=== PATIENT | male | born 1945 ===

== ENCOUNTER 2017-12-26 13:02 | Emergency (ER) | payer MEDICARE, MEDICAID ==
[2017-12-26 14:13] LABS: SQUAMOUS EPITHIAL 1 /hpf (0-5); URINE BACTERIA RARE (<OCC); URINE BILIRUBIN NEGATIVE (NEGATIVE); URINE BLOOD LARGE (NEGATIVE); URINE CLARITY CLOUDY (Clear); URINE COLOR AMBER (YELLOW); URINE GLUCOSE (UA) NEG (Normal); URINE LEUKOCYTE ESTERASE SMALL Leu/uL (Negative); URINE PROTEIN 100 mg/dL (NEGATIVE); URINE UROBILINOGEN 0.2-1.0 mg/dL (0.2-1.0)
--- NOTE | 2017-12-26 14:36 | ED PDOC ---
HPI: Male Pain Time Seen by Provider: 12/26/17 13:05 Chief Complaint (Nursing): Male Genitourinary Chief Complaint (Provider): Male Genitourinary History Per: Patient History/Exam Limitations: no limitations Onset/Duration Of Symptoms: Days (1) Associated Symptoms: denies: Fever, Vomiting Additional Complaint(s): 72 years old male with history of hypertension presents to the ED for evaluation of hematuria associated with slight dysuria onset last night. Patient denies any fever, vomiting or any medical complaints. PMD: none provided Past Medical History Reviewed: Historical Data, Nursing Documentation, Vital Signs Vital Signs: Last Vital Signs Temp 97.9 F 12/26/17 13:05 Pulse 79 12/26/17 13:05 Resp 18 12/26/17 13:05 BP 122/78 12/26/17 13:05 Pulse Ox 100 12/26/17 13:05 - Medical History PMH: HTN - Surgical History Surgical History: No Surg Hx - Family History Family History: States: Unknown Family Hx - Social History Current smoker - smoking cessation education provided: Yes Alcohol: Social Drugs: Denies - Home Medications Home Medications: Ambulatory Orders Medication Instructions Recorded Ciprofloxacin HCl [Cipro] 500 mg PO BID #20 tab 05/20/16 Docusate [Colace] 100 mg PO DAILY #10 cap 05/20/16 Ciprofloxacin HCl [Cipro] 500 mg PO BID #20 tab 12/26/17 - Allergies Allergies/Adverse Reactions: Allergies Allergy/AdvReac Type Severity Reaction Status Date / Time No Known Allergies Allergy Verified 12/26/17 13:05 Review of Systems ROS Statement: Except As Marked, All Systems Reviewed And Found Negative Constitutional: Negative for: Fever Gastrointestinal: Negative for: Vomiting Genitourinary Male: Positive for: Dysuria (slight), Hematuria Physical Exam - Reviewed Nursing Documentation Reviewed: Yes Vital Signs Reviewed: Yes - Physical Exam Appears: Positive for: Non-toxic, No Acute Distress Head Exam: Positive for: ATRAUMATIC, NORMOCEPHALIC Skin: Positive for: Normal Color, Warm, Dry Neck: Positive for: Normal Cardiovascular/Chest: Positive for: Regular Rate, Rhythm Respiratory: Positive for: Normal Breath Sounds Gastrointestinal/Abdominal: Positive for: Normal Exam, Soft. Negative for: Tenderness Back: Positive for: Normal Inspection Extremity: Positive for: Normal ROM Neurologic/Psych: Positive for: Alert, Oriented - Laboratory Results Result Diagrams: 12/26/17 15:05 12/26/17 15:05 - ECG O2 Sat by Pulse Oximetry: 100 (RA) Pulse Ox Interpretation: Normal Medical Decision Making Medical Decision Making: Time: 1435 Initial impression: hematuria rule out UTI vs mass Initial Plan: --CT Abd & Pelvis W/O Contrast --CMP --CBC --Cipro 500 mg Po --Urine C&S --Urinalysis 16:06 CT Abd/pelvis FINDINGS: LOWER THORAX: Unremarkable. LIVER: Unremarkable. No gross lesion or ductal dilatation. GALLBLADDER AND BILE DUCTS: Unremarkable. PANCREAS: Unremarkable. No gross lesion or ductal dilatation. SPLEEN: Unremarkable. ADRENALS: Unremarkable. No mass. KIDNEYS AND URETERS: Unremarkable. No hydronephrosis. No solid mass. VASCULATURE: Unremarkable. No aortic aneurysm. BOWEL: Unremarkable. No obstruction. No gross mural thickening. APPENDIX: Not identified. No secondary findings. PERITONEUM: No ascites. No pneumoperitoneum. LYMPH NODES: Unremarkable. No enlarged lymph nodes. BLADDER: Poorly distended REPRODUCTIVE: Mild prostate enlargement, 5.6 cm transversely. Coarse calcification. BONES: No acute fracture. OTHER FINDINGS: Ovoid fluid density mass in the right hemipelvis anterior to the right psoas muscle, approximately 4.9 x 7.2 x 4.7 cm. Previously, 4.3 x 6.8 by 4.8 cm. Mild interval increase in size. Second fluid density mass anterior to the psoas just below the level of the kidney, rounded, 2.6 x 3.4 cm. Previously, this measured 2.8 x 3.4 x 5.5 cm. This has decreased substantially in size. No other mass identified. Given the decrease in size L1 mass and the very mild increase in size of the larger mass, since 2016, this is unlikely to represent malignancy. Nevertheless, continued followup is advised. Differential diagnosis includes enteral duplication cysts, mesenteric cysts, less likely necrotic lymph nodes. IMPRESSION: Two fluid density masses, 1 slightly increased and the other significantly decreased in size when compared to examination of 05/20/2016. Significance uncertain. Continued follow-up with CT is advised. No other significant abnormality. 16:30 Labs reviewed and patient reports he feels better. Pt made aware of CT results and given copy of report ot bring to urologist and primary doctor. Patient will be referred back to his urologist and is diagnosed with a urinary tract infection. ----- Scribe Attestation: Documented by Rachna Jacob and Huy Keith, acting as a scribe for Zeniada Almeida MD. Provider Scribe Attestation: All medical record entries made by the Scribe were at my direction and personally dictated by me. I have reviewed the chart and agree that the record accurately reflects my personal performance of the history, physical exam, medical decision making, and the department course for this patient. I have also personally directed, reviewed, and agree with the discharge instructions and disposition. Disposition - Clinical Impression Clinical Impression: Hematuria - Patient ED Disposition Is Patient to be Admitted: No Counseled Patient/Family Regarding: Studies Performed, Diagnosis, Need For Followup - Disposition Referrals: [facility] [Outside] Tip Lees MD [Medical Doctor] - Disposition: Routine/Home Disposition Time: 16:25 Condition: IMPROVED Additional Instructions: follow up with urologist for further management within one week also follow up for findings on CT with your primary doctor within 2 days return to the ED with any worsening or concerning symptoms Prescriptions: Ciprofloxacin HCl [Cipro] 500 mg PO BID #20 tab Instructions: Blood in the Urine (Hematuria), Adult (DC) Forms: [employer] (Frisian) Print Language: CZECH
[2017-12-26 15:09] LABS: BASO # 0.1 K/uL (0.0-0.2); BASO % 0.8 % (0.0-2.0); EOS # 0.2 K/uL (0.0-0.7); EOS % 2.5 % (0.0-4.0); HEMOGLOBIN 14.3 g/dL (12.0-18.0); LYMPH # 4.6 K/uL (1.0-4.3); LYMPH % 47.3 % (20.0-40.0); MEAN CORPUSCULAR HEMOGLOBIN 28.3 pg (27.0-31.0); MEAN CORPUSCULAR HGB CONC 31.8 g/dL (33.0-37.0); MEAN PLATELET VOLUME 8.8 fl (7.2-11.7); MONO # 0.5 K/uL (0.0-0.8); MONO % 5.6 % (0.0-10.0); NEUT # 4.3 K/uL (1.8-7.0); NEUT % 43.8 % (50.0-75.0); NRBC % 0.1 % (0.0-0.0); RBC 5.03 Mil/uL (4.40-5.90); RED CELL DISTRIBUTION WIDTH 13.8 % (11.5-14.5); WHITE BLOOD COUNT 9.8 K/uL (4.8-10.8)
[2017-12-26 15:32] LABS: ALB/GLOB RATIO 1.2 (1.0-2.1); ALT/SGPT 27 U/L (21-72); AST/SGOT 25 U/L (17-59); BLOOD UREA NITROGEN 11 mg/dl (9-20); CALCIUM 10.6 mg/dL (8.4-10.2); GFR AFRICAN-AMERICAN > 60; GFR NON-AFRICAN AMERICAN > 60
--- NOTE | 2017-12-26 16:08 | CT ---
PROCEDURE: CT Abdomen and Pelvis without intravenous contrast HISTORY: abd pain COMPARISON: 05/20/2016 TECHNIQUE: Without contrast.. Contrast dose: 0 Radiation dose: Total exam DLP = 457.78 mGy-cm. This CT exam was performed using one or more of the following dose reduction techniques: Automated exposure control, adjustment of the mA and/or kV according to patient size, and/or use of iterative reconstruction technique. FINDINGS: LOWER THORAX: Unremarkable. LIVER: Unremarkable. No gross lesion or ductal dilatation. GALLBLADDER AND BILE DUCTS: Unremarkable. PANCREAS: Unremarkable. No gross lesion or ductal dilatation. SPLEEN: Unremarkable. ADRENALS: Unremarkable. No mass. KIDNEYS AND URETERS: Unremarkable. No hydronephrosis. No solid mass. VASCULATURE: Unremarkable. No aortic aneurysm. BOWEL: Unremarkable. No obstruction. No gross mural thickening. APPENDIX: Not identified. No secondary findings. PERITONEUM: No ascites. No pneumoperitoneum. LYMPH NODES: Unremarkable. No enlarged lymph nodes. BLADDER: Poorly distended REPRODUCTIVE: Mild prostate enlargement, 5.6 cm transversely. Coarse calcification. BONES: No acute fracture. OTHER FINDINGS: Ovoid fluid density mass in the right hemipelvis anterior to the right psoas muscle, approximately 4.9 x 7.2 x 4.7 cm. Previously, 4.3 x 6.8 by 4.8 cm. Mild interval increase in size. Second fluid density mass anterior to the psoas just below the level of the kidney, rounded, 2.6 x 3.4 cm. Previously, this measured 2.8 x 3.4 x 5.5 cm. This has decreased substantially in size. No other mass identified. Given the decrease in size L1 mass and the very mild increase in size of the larger mass, since 2016, this is unlikely to represent malignancy. Nevertheless, continued followup is advised. Differential diagnosis includes enteral duplication cysts, mesenteric cysts, less likely necrotic lymph nodes. IMPRESSION: Two fluid density masses, 1 slightly increased and the other significantly decreased in size when compared to examination of 05/20/2016. Significance uncertain. Continued follow-up with CT is advised. No other significant abnormality.
[2017-12-26 17:49] VITALS: BP 145/76; PULSE 71; RESP 16; TEMP 98.4
[2017-12-27 23:35] VITALS: O2SAT 100
== END 2017-12-26 16:57 | disposition home or self-care (01) ==
LOC: H.ER 13:02
DX: N39.0 Urinary tract infection, site not specified (principal); I10 Essential (primary) hypertension

== ENCOUNTER 2018-02-20 06:56 | Day surgery (SDC) | payer MEDICARE, MEDICAID ==
[2018-02-20 07:41] VITALS: BMI 23.0
[2018-02-20] MEDS ORDERED: Lactated Ringer's 1,000 ML IV ONE (08:30)
[2018-02-20 08:38] VITALS: RESP 18
[2018-02-20] MEDS ORDERED: Propofol 10 mg/ml Inj (20 ML) ONE (11:08)
[2018-02-20] MEDS ORDERED: cefTRIAXone (Rocephin) 1 gm Inj ONE (11:33)
[2018-02-20] MEDS ORDERED: Lidocaine 2% Jelly (Uro-Jet) ONE (11:33)
[2018-02-20] MEDS ORDERED: cefTRIAXone (Rocephin) 1 gm Inj IM ONE (11:35)
[2018-02-20] MEDS ORDERED: Lidocaine 2% Jelly (Uro-Jet) TOP ONE (11:40)
[2018-02-20] MEDS ORDERED: ePHEDrine 50 mg/ml Inj ONE (11:42)
[2018-02-20] MEDS ORDERED: HYDROmorphone 1 mg/ml ISec IVP PRN (12:23)
[2018-02-20 17:31] VITALS: BP 124/67; PULSE 67; TEMP 97.7; O2SAT 99
--- NOTE | 2018-02-20 23:19 | OP ---
Copied To: Tip Lees MD Attending MD: Tip Lees MD PROCEDURE DATE: 02/20/2018 PREOPERATIVE DIAGNOSIS: Prostatic calculi. POSTOPERATIVE DIAGNOSIS: Prostatic calculi. PROCEDURE PERFORMED: Cystoscopy with laser lithotripsy of multiple prostatic calculi. SURGEON: Tip Lees MD DESCRIPTION OF PROCEDURE: The patient was placed on the operating room table in dorsal lithotomy position, given general anesthesia. The area of the groin was draped and prepped in a sterile manner. The patient at this time underwent cystoscopy and at the level of the verumontanum on both left and right sides, there were at least 4 good sized prostatic calculi embedded in the prostate. I used laser fiber 1000 fiber to pulverize the stones. Once then significant bleeding in that local area began. I used the Bugbee to cauterize again control. By this time, all the pieces had come out of the embedded areas. I looked into the bladder. There was moderate trabeculation throughout the bladder wall secondary to prostatic enlargement. Once these observations were made, then the instrumentation was removed. A #22 three-way Callaway catheter was inserted. CBI was begun. The patient was taken from the operating room in good condition. Tip Lees MD
== END 2018-02-20 18:00 | disposition home or self-care (01) ==
LOC: H.OPSURG 06:56
PROVIDERS: ATTEND Urology
DX: N42.0 Calculus of prostate (principal); I10 Essential (primary) hypertension
CPT/HCPCS: 52318; J0696; J2704; J3010; J7120

== ENCOUNTER 2018-08-10 06:23 | Emergency (ER) | payer MEDICARE, MEDICAID ==
[2018-08-10 06:23] VITALS: BMI 23.0
[2018-08-10 06:33] VITALS: O2SAT 97
[2018-08-10 07:06] VITALS: RESP 15; TEMP 98.8
--- NOTE | 2018-08-10 07:23 | ED PDOC ---
HPI: Trauma/Fall - HPI Time Seen by Provider: 08/10/18 07:06 Chief Complaint (Nursing): Trauma Chief Complaint (Provider): Trauma History Per: Patient History/Exam Limitations: no limitations Onset/Duration Of Symptoms: Hrs Injury Occurred (Timing): Hours Ago: (2) Associated Symptoms: denies: Dizziness, Dazed, LOC Additional History Per: Patient Additional Complaint(s): 73yo male, with history of hypertension, brought in by EMS for evaluation s/p a mechanical fall at 5am today. Patient states he was getting out of his bed when he tripped and fell, injuring his forehead, nose and neck. Patient currently complains of headache, nasal pain, and neck pain. He denies any dizziness or lightheadedness prior to the fall, and denies any loss of consciousness, vomiting, weakness or numbness after the fall. No additional complaints. Patient does not take any anti-coagluants PMD: Flavio Woodward Past Medical History Reviewed: Historical Data, Nursing Documentation, Vital Signs Vital Signs: Last Vital Signs Temp 98.8 F 08/10/18 07:03 Pulse 81 08/10/18 07:03 Resp 15 08/10/18 07:03 BP 153/93 H 08/10/18 07:03 Pulse Ox 97 08/10/18 07:03 - Medical History PMH: HTN - Surgical History Other surgeries: BPH surgery - Family History Family History: States: No Known Family Hx - Living Arrangements Living Arrangements: With Family - Home Medications Home Medications: Ambulatory Orders Medication Instructions Recorded Ciprofloxacin [Cipro] 500 mg PO BID 02/20/18 Losartan [Cozaar] 50 mg PO DAILY 02/20/18 Phenazopyridine HCl [Pyridium] 200 mg PO DAILY 02/20/18 Oxymetazoline 0.05% [Afrin 0.05%] 1 spr NS Q12H #1 bottle 08/10/18 - Allergies Allergies/Adverse Reactions: Allergies Allergy/AdvReac Type Severity Reaction Status Date / Time No Known Allergies Allergy Verified 02/20/18 07:41 Review of Systems ROS Statement: Except As Marked, All Systems Reviewed And Found Negative Eyes: Negative for: Vision Change ENT: Positive for: Nose Pain Cardiovascular: Negative for: Light Headedness Gastrointestinal: Negative for: Vomiting Musculoskeletal: Positive for: Neck Pain Neurological: Positive for: Headache. Negative for: Weakness, Numbness, Dizziness Physical Exam - Reviewed Nursing Documentation Reviewed: Yes Vital Signs Reviewed: Yes - Physical Exam Appears: Positive for: Non-toxic Head Exam: Positive for: NORMAL INSPECTION, NORMOCEPHALIC. Negative for: ATRAUMATIC (+ 10cm hematoma and eccymosis noted to forehead) Skin: Positive for: Normal Color Eye Exam: Positive for: EOMI, PERRL ENT: Positive for: Other (dried blood noted to left nare; + swelling to nose; no septal hematoma noted) Neck: Positive for: Supple. Negative for: Normal (+ tenderenss to midline c- spine) Cardiovascular/Chest: Positive for: Regular Rate, Rhythm, Chest Non Tender Respiratory: Positive for: Normal Breath Sounds. Negative for: Wheezing Pulses-Radial (L): 2+ Pulses-Radial (R): 2+ Gastrointestinal/Abdominal: Positive for: Normal Exam, Soft. Negative for: Tenderness, Guarding, Rebound Back: Positive for: Normal Inspection. Negative for: L CVA Tenderness, R CVA Tenderness Extremity: Positive for: Normal ROM. Negative for: Pedal Edema Neurologic/Psych: Positive for: Alert, Oriented. Negative for: Motor/Sensory Deficits - ECG ECG: Positive for: Interpreted By Me, Viewed By Me ECG Rhythm: Positive for: Normal QRS, Normal ST Segment, Sinus Rhythm. Negative for: ST/T Changes Rate: 71 O2 Sat by Pulse Oximetry: 97 (RA) Pulse Ox Interpretation: Normal Medical Decision Making Medical Decision Makinyo male presents s/p fall and with complaints of headache, neck pain Rule out intracranial bleed, facial fractures, cervical spine injury Plan: -- CT Head w/o contrast -- CT C-Spine -- CT Maxillofacial Patient placed in hard c-collar 0922 CT Head FINDINGS: HEMORRHAGE: No intracranial hemorrhage. BRAIN: No mass effect or edema. No atrophy. Mild chronic periventricular white matter lucency consistent with microvascular ischemic change. No evidence of acute infarct. VENTRICLES: Unremarkable. No hydrocephalus. CALVARIUM: No fracture. Left frontal scalp hematoma extending into the left superior palpebrum. PARANASAL SINUSES: Unremarkable as visualized. No significant inflammatory changes. MASTOID AIR CELLS: Unremarkable as visualized. No inflammatory changes. OTHER FINDINGS: None. IMPRESSION: No intracranial hemorrhage. Mild chronic white matter ischemic change. Left frontal scalp hematoma extending into the left superior palpebrum. 0936 CT C-Spine FINDINGS: VERTEBRAE: The vertebral bodies are maintained in height. Normal alignment is maintained. The atlantoaxial articulation and odontoid process are intact. DISCS/SPINAL CANAL/NEURAL FORAMINA: There narrowing of the C4-5 and C6-7 intervertebral disc spaces consistent with degenerative disc disease. The remaining intervertebral disc spaces are maintained. PARASPINAL SOFT TISSUES: Unremarkable. OTHER FINDINGS: None. IMPRESSION: No evidence of fracture or dislocation. Multilevel degenerative disc disease. Otherwise unremarkable. CT Maxillofacial FINDINGS: NASAL BONES: Unremarkable. ORBITS: No orbital fracture. No intraorbital hemorrhage. Globes rounded and symmetric. PARANASAL SINUSES/ MASTOIDS: Minimal chronic frontal sinusitis. MAXILLA: Unremarkable. MANDIBLE/ TEMPOROMANDIBULAR JOINTS: Unremarkable. SKULL BASE: Unremarkable. TEMPORAL BONES: Middle ears and mastoid grossly unremarkable. OTHER FINDINGS: Left frontal scalp hematoma extending into the left superior palpebrum. IMPRESSION: No acute facial fracture. Left frontal scalp hematoma. Otherwise unremarkable. Patient given Motrin 400mg PO for pain relief. Based on CT C-Spine results, hard collar removed. 0950 On reassessment, patient reports improvement in pain. Patient informed of CT results, and instructed to follow up with PMD in 2-3 days. Patient reports a laceration on his left upper lip, right below his left nare; attempted to close the wound with dermabond with no success. On exam, minimal oozing noted. Patient instructed to apply pressure to the area. Will reassess and if bleeding not controlled, will place sutures. 1100 On reassessment, patient with persistent bleeding from wound site despite pressure. Will suture wound, see procedure note. 1155 Wound successfully approximated and bleeding stopped. Patient informed on wound care, and given follow up instructions. Stable for discharge home. Scribe Attestation: Documented by Kimberley Guerrero acting as a scribe for Som Womack MD. Provider Attestation: All medical record entries made by the Scribe were at my direction and personally dictated by me. I have reviewed the chart and agree that the record accurately reflects my personal performance of the history, physical exam, medical decision making, and the department course for this patient. I have also personally directed, reviewed, and agree with the discharge instructions and disposition. Procedures - Time-Out Type of Procedure: Laceration repair - Laceration/Wound Repair Puncture wound Wound Length (cm): 0.5 Wound's Depth, Shape: superficial Anesthesia: 1% Lidocaine Wound Repaired With: Sutures (cruciate figure 8 suture) Suture Size/Type: 5:0, nylon Number of Sutures: 1 Wound Complexity: Simple Sterile Dressing Applied?: Yes Progress: Patient tolerated procedure well laceration repaired by resident under my supervision Disposition - Clinical Impression Clinical Impression: Head injury, Scalp hematoma, Neck pain, Nose injury, Puncture wound of lip - Patient ED Disposition Is Patient to be Admitted: No Doctor Will See Patient In The: Office Counseled Patient/Family Regarding: Studies Performed, Diagnosis, Need For Followup - Disposition Referrals: [facility] [Outside] Ash Kirk MD [Staff Provider] - Tommie Miner MD [Staff Provider] - Disposition: Routine/Home Disposition Time: 09:33 Condition: GOOD Additional Instructions: Follow up with your PCP in 5- 7 days for suture removal. MATEUS GOYAL, thank you for letting us take care of you today. Your provider was Som Womack MD and you were treated for HEAD INJURY. The emergency medical care you received today was directed at your acute symptoms. If you were prescribed any medication, please fill it and take as directed. It may take several days for your symptoms to resolve. Return to the Emergency Department if your symptoms worsen, do not improve, or if you have any other problems. Please contact your doctor or call one of the physicians/clinics you have been referred to that are listed on the Patient Visit Information form that is included in your discharge packet. Bring any paperwork you were given at discharge with you along with any medications you are taking to your follow up visit. Our treatment cannot replace ongoing medical care by a primary care provider outside of the emergency department. Thank you for allowing the [facility] team to be part of your care today. If you had an X-Ray or CT scan: A Radiologist will review the ED reading if any change in treatment is needed we will contact you. If you had a blood, urine, or wound culture: It will take several days for the results, if any change in treatment is needed we will contact you. If you had an STI test: It will take 48 hours for the results. Please call after 1 week if you have not heard back. Prescriptions: Oxymetazoline 0.05% [Afrin 0.05%] 1 spr NS Q12H #1 bottle Instructions: Contusion (DC), Minor Head Injury, Stitches Print Language: KOREAN
--- NOTE | 2018-08-10 09:19 | CT ---
Date of service: 08/10/2018 PROCEDURE: CT HEAD WITHOUT CONTRAST. HISTORY: head injury fall COMPARISON: None available. TECHNIQUE: Axial computed tomography images were obtained through the head/brain without intravenous contrast. Radiation dose: Total exam DLP = 1036.57 mGy-cm. This CT exam was performed using one or more of the following dose reduction techniques: Automated exposure control, adjustment of the mA and/or kV according to patient size, and/or use of iterative reconstruction technique. FINDINGS: HEMORRHAGE: No intracranial hemorrhage. BRAIN: No mass effect or edema. No atrophy. Mild chronic periventricular white matter lucency consistent with microvascular ischemic change. No evidence of acute infarct. VENTRICLES: Unremarkable. No hydrocephalus. CALVARIUM: No fracture. Left frontal scalp hematoma extending into the left superior palpebrum. PARANASAL SINUSES: Unremarkable as visualized. No significant inflammatory changes. MASTOID AIR CELLS: Unremarkable as visualized. No inflammatory changes. OTHER FINDINGS: None. IMPRESSION: No intracranial hemorrhage. Mild chronic white matter ischemic change. Left frontal scalp hematoma extending into the left superior palpebrum.
--- NOTE | 2018-08-10 09:23 | CT ---
Date of service: 08/10/2018 PROCEDURE: CT MAXILLOFACIAL BONES WITHOUT CONTRAST HISTORY: head injury fall COMPARISON: None available. TECHNIQUE: Contiguous axial CT images of the maxillofacial bones were obtained. Coronal and sagittal reformats were generated. Radiation dose: Total exam DLP = 893.53 mGy-cm. This CT exam was performed using one or more of the following dose reduction techniques: Automated exposure control, adjustment of the mA and/or kV according to patient size, and/or use of iterative reconstruction technique. FINDINGS: NASAL BONES: Unremarkable. ORBITS: No orbital fracture. No intraorbital hemorrhage. Globes rounded and symmetric. PARANASAL SINUSES/ MASTOIDS: Minimal chronic frontal sinusitis. MAXILLA: Unremarkable. MANDIBLE/ TEMPOROMANDIBULAR JOINTS: Unremarkable. SKULL BASE: Unremarkable. TEMPORAL BONES: Middle ears and mastoid grossly unremarkable. OTHER FINDINGS: Left frontal scalp hematoma extending into the left superior palpebrum. IMPRESSION: No acute facial fracture. Left frontal scalp hematoma. Otherwise unremarkable.
--- NOTE | 2018-08-10 09:32 | CT ---
Date of service: 08/10/2018 PROCEDURE: CT Cervical Spine without contrast HISTORY: neck pain fall COMPARISON: None available. TECHNIQUE: Axial computed tomography images were obtained of the cervical spine without the use of intravenous contrast. Coronal and sagittal reformatted images were created and reviewed. Radiation dose: Total exam DLP = 360.3 mGy-cm. This CT exam was performed using one or more of the following dose reduction techniques: Automated exposure control, adjustment of the mA and/or kV according to patient size, and/or use of iterative reconstruction technique. FINDINGS: VERTEBRAE: The vertebral bodies are maintained in height. Normal alignment is maintained. The atlantoaxial articulation and odontoid process are intact. DISCS/SPINAL CANAL/NEURAL FORAMINA: There narrowing of the C4-5 and C6-7 intervertebral disc spaces consistent with degenerative disc disease. The remaining intervertebral disc spaces are maintained. PARASPINAL SOFT TISSUES: Unremarkable. OTHER FINDINGS: None. IMPRESSION: No evidence of fracture or dislocation. Multilevel degenerative disc disease. Otherwise unremarkable.
[2018-08-10 09:38] VITALS: PULSE 71
[2018-08-10] MEDS ORDERED: Lidocaine 2% Inj (20ml) ONE (11:03)
[2018-08-10] MEDS ORDERED: Lidocaine 2% Inj (20ml) INFIL ONE (11:05)
[2018-08-10] MEDS ORDERED: Tdap Vaccine 0.5 ml Vial (10-64 yrs) IM ONE ×2 (11:55→12:20)
[2018-08-10 12:15] VITALS: BP 162/94
--- NOTE | 2018-08-10 20:41 | CARD ---
APPROVED REPORT Date of service: 08/10/2018 EKG Measurement Heart [id number] <Conclusion> Normal sinus rhythm Normal ECG
== END 2018-08-10 12:42 | disposition home or self-care (01) ==
LOC: H.ER 06:23
DX: S09.90XA Unspecified injury of head, initial encounter (principal); S00.03XA Contusion of scalp, initial encounter; S01.511A Laceration without foreign body of lip, initial encounter; S09.92XA Unspecified injury of nose, initial encounter; W19.XXXA Unspecified fall, initial encounter; Y92.89 Other specified places as the place of occurrence of the external cause; I10 Essential (primary) hypertension; J32.1 Chronic frontal sinusitis; N40.0 Benign prostatic hyperplasia without lower urinary tract symptoms

== ENCOUNTER 2018-11-19 14:13 | Emergency (ER) | payer MEDICARE, MEDICAID ==
[2018-11-19 14:13] VITALS: BMI 23.0
--- NOTE | 2018-11-19 15:30 | ED PDOC ---
HPI: General Adult Time Seen by Provider: 11/19/18 14:47 Chief Complaint (Nursing): Headache Chief Complaint (Provider): facial numbness History Per: Patient History/Exam Limitations: no limitations Onset/Duration Of Symptoms: Days (2x) Current Symptoms Are (Timing): Still Present Severity: Moderate Additional Complaint(s): 73 year old male with a past medical history of hypertension presents to the ED for an evaluation of left facial numbness ongoing for 2x days. Patient states that the left upper part of his face around his eye is numb constantly. Patient denies having pain or vision changes, weakness or numbness of any other areas of his face or body, headaches, dizziness, chest pain or fevers. Patient denies having any recent head injuries, but reports having a head injury July 2018, and was seen in the ED, had a negative CT head, and was discharged home. Patient denies having any other complaints. PMD: Flavio Woodward MD Past Medical History Reviewed: Historical Data, Nursing Documentation, Vital Signs Vital Signs: Last Vital Signs Temp 98.2 F 11/19/18 14:32 Pulse 82 11/19/18 14:32 Resp 20 11/19/18 14:32 BP 117/72 11/19/18 14:32 Pulse Ox 97 11/19/18 14:32 VIANEY Report Viewed: Yes Primary Care Provider: Flavio Woodward - Medical History PMH: HTN - Family History Family History: States: No Known Family Hx - Social History Current smoker - smoking cessation education provided: Yes Alcohol: None Drugs: Denies - Home Medications Home Medications: Ambulatory Orders Medication Instructions Recorded Ciprofloxacin [Cipro] 500 mg PO BID 02/20/18 Losartan [Cozaar] 50 mg PO DAILY 02/20/18 Phenazopyridine HCl [Pyridium] 200 mg PO DAILY 02/20/18 Oxymetazoline 0.05% [Afrin 0.05%] 1 spr NS Q12H #1 bottle 08/10/18 - Allergies Allergies/Adverse Reactions: Allergies Allergy/AdvReac Type Severity Reaction Status Date / Time No Known Allergies Allergy Verified 11/19/18 14:36 Review of Systems ROS Statement: Except As Marked, All Systems Reviewed And Found Negative Constitutional: Negative for: Fever Eyes: Negative for: Vision Change Cardiovascular: Negative for: Chest Pain Neurological: Positive for: Other (left sided facial numbness around eye. (-) pain. (-)weakness or numbness in any other areas or parts of the body). Nega tive for: Headache, Dizziness Physical Exam - Reviewed Nursing Documentation Reviewed: Yes Vital Signs Reviewed: Yes - Physical Exam Appears: Positive for: Well, Non-toxic, No Acute Distress Head Exam: Positive for: ATRAUMATIC, NORMOCEPHALIC Skin: Positive for: Normal Color, Warm, Dry Eye Exam: Positive for: Normal appearance, EOMI, PERRL ENT: Positive for: Normal ENT Inspection Cardiovascular/Chest: Positive for: Regular Rate, Rhythm Respiratory: Positive for: Normal Breath Sounds Neurological/Psych: Positive for: Awake, Alert, Symmetric/Intact Strength, Oriented (3x), Cerebellar Tests (normal), starch crab II-XII (intact). Negative for: Motor/Sensory Deficits, Facial Droop - Laboratory Results Result Diagrams: 11/19/18 15:22 11/19/18 15:22 - ECG O2 Sat by Pulse Oximetry: 97 (RA) Pulse Ox Interpretation: Normal - Progress Re-evaluation Time: 18:00 Condition: Re-examined, Improved Medical Decision Making Medical Decision Makin:47 Initial impression: 73 year old mal with left facial numbness. Differential diagnoses include but are not limited to CVA, intracranial bleeding, brain mass, peripheral neuropathy, no other neurology complaints. Initial plan: * CT head w/o contrast * BMP * CBC with differential * ESR * reevaluation 17:02 CT head read and reviewed by radiologist FINDINGS: HEMORRHAGE: No intracranial hemorrhage. BRAIN: Good corticomedullary differentiation is seen. 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 No suspicious extra-axial fluid collection is identified and the midline brain anatomy appears grossly nonfocal as imaged. No mass effect identified. VENTRICLES: Unremarkable. No hydrocephalus. CALVARIUM: Stable calvarium with no suspicious findings seen in the interval. Prior prominent left frontal scalp hematoma appears to have resolved. PARANASAL SINUSES: Unremarkable as visualized. No significant inflammatory changes. MASTOID AIR CELLS: Unremarkable as visualized. No inflammatory changes. OTHER FINDINGS: None. IMPRESSION: Stable age related neuro degenerative changes remain age-appropriate. No acute intracranial findings. Follow-up CT or MRI are available if clinically warranted. Scribe Attestation: Documented by Lorri Brown, acting as a scribe for Som Womack MD. Provider Scribe Attestation: All medical record entries made by the Scribe were at my direction and personally dictated by me. I have reviewed the chart and agree that the record accurately reflects my personal performance of the history, physical exam, medical decision making, and the department course for this patient. I have also personally directed, reviewed, and agree with the discharge instructions and disposition. Disposition - Clinical Impression Clinical Impression: Left facial numbness - Patient ED Disposition Is Patient to be Admitted: No Doctor Will See Patient In The: Office Counseled Patient/Family Regarding: Studies Performed, Diagnosis, Need For Followup - Disposition Referrals: Matthias Mcqueen MD [Medical Doctor] - Disposition: Routine/Home Disposition Time: 18:27 Condition: GOOD Additional Instructions: MATEUS MURILLO, thank you for letting us take care of you today. Your provider was Som Womack MD and you were treated for HEADACHE. The emergency medical care you received today was directed at your acute symptoms. If you were prescribed any medication, please fill it and take as directed. It may take several days for your symptoms to resolve. Return to the Emergency Depa rtment if your symptoms worsen, do not improve, or if you have any other problems. Please contact your doctor or call one of the physicians/clinics you have been referred to that are listed on the Patient Visit Information form that is included in your discharge packet. Bring any paperwork you were given at discharge with you along with any medications you are taking to your follow up visit. Our treatment cannot replace ongoing medical care by a primary care provider outside of the emergency department. Thank you for allowing the [facility] team to be part of your care today. If you had an X-Ray or CT scan: A Radiologist will review the ED reading if any change in treatment is needed we will contact you. Instructions: Paresthesias (DC) Forms: [employer] (Mongolian) Print Language: BRITISH
[2018-11-19 15:31] LABS: BASO # 0.1 K/uL (0.0-0.2); BASO % 0.7 % (0.0-2.0); EOS # 0.2 K/uL (0.0-0.7); EOS % 1.7 % (0.0-4.0); HEMOGLOBIN 13.9 g/dL (12.0-18.0); LYMPH # 5.2 K/uL (1.0-4.3); LYMPH % 48.2 % (20.0-40.0); MEAN CORPUSCULAR HEMOGLOBIN 28.9 pg (27.0-31.0); MEAN CORPUSCULAR HGB CONC 32.1 g/dL (33.0-37.0); MEAN PLATELET VOLUME 7.9 fl (7.2-11.7); MONO # 0.5 K/uL (0.0-0.8); MONO % 4.9 % (0.0-10.0); NEUT # 4.8 K/uL (1.8-7.0); NEUT % 44.5 % (50.0-75.0); NRBC % 0.1 % (0.0-0.0); RBC 4.8 Mil/uL (4.40-5.90); RED CELL DISTRIBUTION WIDTH 13.9 % (11.5-14.5); WHITE BLOOD COUNT 10.7 K/uL (4.8-10.8)
[2018-11-19 15:47] LABS: BLOOD UREA NITROGEN 14 mg/dl (9-20); CALCIUM 10.4 mg/dL (8.4-10.2); GFR NON-AFRICAN AMERICAN > 60
--- NOTE | 2018-11-19 17:09 | CT ---
Date of service: 11/19/2018 PROCEDURE: CT HEAD WITHOUT CONTRAST. HISTORY: left facial numbness COMPARISON: Unenhanced head CT 08/10/2018. TECHNIQUE: Axial computed tomography images were obtained through the head/brain without intravenous contrast. Radiation dose: Total exam DLP = 0.0 mGy-cm. This CT exam was performed using one or more of the following dose reduction techniques: Automated exposure control, adjustment of the mA and/or kV according to patient size, and/or use of iterative reconstruction technique. FINDINGS: HEMORRHAGE: No intracranial hemorrhage. BRAIN: Good corticomedullary differentiation is seen. 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 No suspicious extra-axial fluid collection is identified and the midline brain anatomy appears grossly nonfocal as imaged. No mass effect identified. VENTRICLES: Unremarkable. No hydrocephalus. CALVARIUM: Stable calvarium with no suspicious findings seen in the interval. Prior prominent left frontal scalp hematoma appears to have resolved. PARANASAL SINUSES: Unremarkable as visualized. No significant inflammatory changes. MASTOID AIR CELLS: Unremarkable as visualized. No inflammatory changes. OTHER FINDINGS: None. IMPRESSION: Stable age related neuro degenerative changes remain age-appropriate. No acute intracranial findings. Follow-up CT or MRI are available if clinically warranted.
[2018-11-19 18:20] VITALS: BP 119/72; PULSE 77; RESP 16; TEMP 98.7
[2018-11-19 18:58] VITALS: O2SAT 100
== END 2018-11-19 18:45 | disposition home or self-care (01) ==
LOC: H.ER 14:13
DX: R20.2 Paresthesia of skin (principal); R51 Headache; I10 Essential (primary) hypertension